=== PATIENT | female | born 1965 | race Caucasian/White ===

== ENCOUNTER 2019-07-14 10:40 | Emergency (ER) | payer MEDICAID ==
[~2019-07-14] VITALS: Ht 160 cm; Wt 83.9 kg
[2019-07-14 10:48] VITALS: BP_SYST 146
--- NOTE | 2019-07-14 10:50 | NUR ---
Patient to ER bed 1 to gown for evaluation. Side rails up.
--- NOTE | 2019-07-14 10:55 | NUR ---
EFREN Ibarra at bedside examining patient.
--- NOTE | 2019-07-14 10:55 | NUR ---
pt came to ER from home c/o SOB and cough for last 2 weeks. Pt RR labored, O2 WNL on RA, cough present, hx COPD, breathing tx administered recently
--- NOTE | 2019-07-14 11:10 | NUR ---
Medicated per MD orders. IVF infusing with no s/s of infiltration at this time. Will cont to monitor
--- NOTE | 2019-07-14 11:10 | NUR ---
# 20 gauge angiocath placed to R AC. Use of asceptic technique. Opsite placed over site. Blood return noted. Blood for lab drawn from site. Flushed with 10 cc of normal saline. No evidence of infiltration noted. Patient tolerated well.
[2019-07-14] MEDS ORDERED: IPRATROPIUM/ALBUTEROL SULFATE 3 ML AMPUL.NEB (DUONEB) INH ONE ×2 (11:15→12:00)
[2019-07-14] MEDS ORDERED: NACL 0.9% 1,000 ML IV ONE (11:15)
[2019-07-14 11:17] LABS: BASOPHILS # (AUTO) 0.1 K/uL (0.0-0.2); BASOPHILS % (AUTO) 1.3 % (0.0-2.0); EOSINOPHILS % (AUTO) 0.4 % (0.0-4.0); HEMATOCRIT 30.5 % (36-48); HEMOGLOBIN 9.7 g/dL (12.0-16.0); LYMPHOCYTES # (AUTO) 0.6 K/uL (1.0-5.5); LYMPHOCYTES % (AUTO) 12.5 % (20.5-51.5); MEAN CORPUSCULAR HEMOGLOBIN 28 pg (27-31); MEAN CORPUSCULAR HGB CONC 32 % (32-36); MEAN CORPUSCULAR VOLUME 87 fL (79.0-98.0); MONOCYTES # (AUTO) 0.4 K/uL (0.0-1.0); MONOCYTES % (AUTO) 8.4 % (1.7-9.3); NEUTROPHILS # (AUTO) 3.7 K/uL (1.8-7.7); NEUTROPHILS % (AUTO) 77.4 % (40.0-70.0); PLATELET COUNT (AUTO) 199 K/uL (130-430); WHITE BLOOD COUNT (AUTO) 4.7 K/uL (4.8-10.8)
[2019-07-14] MEDS ORDERED: IPRATROPIUM/ALBUTEROL SULFATE 3 ML AMPUL.NEB (DUONEB) ONE (11:19)
[2019-07-14 11:21] LABS: RED CELL DISTRIBUTION WIDTH 22.7 % (9.0-15.0)
[2019-07-14] MEDS ORDERED: PROMETHAZINE HCL/CODEINE 6.25-10 mg/5 mL UDC PO ONE (11:45)
--- NOTE | 2019-07-14 11:54 | NUR ---
Note russel in EDM - 07/14/19 at 1159 by SDEDDW pt came to ER from home c/o SOB and cough for last 2 weeks. Pt RR labored, O2 WNL on RA, cough present, hx COPD, breathing tx administered recently
[2019-07-14 11:59] LABS: ALBUMIN 3.5 g/dL (3.4-4.8); CALCIUM 8.6 mg/dL (8.4-11.0); CREATININE 0.9 mg/dL (0.55-1.30); POTASSIUM 3.6 mmol/L (3.5-5.1); TOTAL BILIRUBIN 0.5 mg/dL (0.0-1.0)
[2019-07-14] MEDS ORDERED: methylPREDNISolone SOD SUCC/PF 62.5 MG/ML VIAL IVP ONE (12:00)
[2019-07-14] MEDS ORDERED: hydrALAZINE HCL 20 MG/ML VIAL IVP ONE (12:00)
[2019-07-14 12:05] LABS: BILIRUBIN,URINE NEGATIVE (NEGATIVE); CLARITY/URINE CLEAR (CLEAR); COLOR,URINE YELLOW (YELLOW); GLUCOSE,URINE NEGATIVE (NEGATIVE); KETONES,URINE NEGATIVE (NEGATIVE); LEUKOCYTE ESTERASE ,URINE NEGATIVE (NEGATIVE); NITRITE, URINE NEGATIVE (NEGATIVE); PROTEIN URINE NEGATIVE (NEGATIVE); UROBILINOGEN,URINE 0.2 (0.2-1.0)
[2019-07-14 12:06] LABS: RBC,URINE 0-3 /HPF (0-3)
[2019-07-14 12:07] LABS: BACTERIA,URINE RARE /HPF (None Seen); WBC,URINE 0-3 /HPF (0-3)
[2019-07-14 12:14] LABS: BARBITURATE, URINE NEGATIVE (NEG <=200); BENZODIAZEPINE, URINE NEGATIVE (NEG <=150); CANNABINOID, URINE NEGATIVE (NEG <=50); COCAINE, URINE NEGATIVE (NEG <=150); METHAMPHETAMINES SCREEN,URINE NEGATIVE (NEG <=500); OPIATE, URINE NEGATIVE (NEG <=100); PHENCYCLIDINE SCREEN,URINE NEGATIVE (NEG <=25); UR TRICYCLIC ANTIDEPRESSANTS NEGATIVE (NEG <=300); URINE AMPHETAMINE NEGATIVE (NEG <=500); URINE METHADONE NEGATIVE (NEG <=200); URINE OXYCODONE SCREEN NEGATIVE (NEG <=100); URINE PROPOXYPHENE SCREEN NEGATIVE (NEG <=300)
[2019-07-14] MEDS ORDERED: OSELTAMIVIR PHOSPHATE 75 MG CAPSULE PO ONE (12:15)
--- NOTE | 2019-07-14 12:20 | NUR ---
Pt tested positive for influenza B.
[2019-07-14 12:25] VITALS: BP_SYST 145
--- NOTE | 2019-07-14 12:27 | NUR ---
Patient given written and verbal discharge instructions and verbalizes understanding. ER MD discussed with patient the results and treatment provided. Patient in stable condition. ID arm band removed. IV catheter removed intact and dressing applied, no active bleeding.Rx of [place] given. Patient educated on pain management and to follow up with PMD. Pain Scale 3/10.Opportunity for questions provided and answered. Medication side effect fact sheet provided.
[2019-07-14 13:08] LABS: BLOOD, URINE 2+ (NEGATIVE)
== END 2019-07-14 12:25 | disposition home or self-care (01) ==
LOC: SED 10:40
DX: J44.1 Chronic obstructive pulmonary disease with (acute) exacerbation (principal); J10.1 Influenza due to other identified influenza virus with other respiratory manifestations; F10.10 Alcohol abuse, uncomplicated; R74.0 Nonspecific elevation of levels of transaminase and lactic acid dehydrogenase [LDH]; D64.9 Anemia, unspecified; F17.210 Nicotine dependence, cigarettes, uncomplicated; Z88.8 Allergy status to other drugs, medicaments and biological substances
CPT/HCPCS: 36415; 71045; 80053; 80307; 81000; 83605; 83880; 84484; 85025; 86710; 87040; 87086; 93005; 94640; 96374; 99284; G0482; G9035; J0360; J2930; J7030; J7620; J1956

== ENCOUNTER 2019-07-16 05:36 | Emergency (ER) | payer MEDICAID ==
[~2019-07-16] VITALS: Ht 160 cm; Wt 83.9 kg
[2019-07-16 05:50] VITALS: BP_SYST 134
--- NOTE | 2019-07-16 05:50 | NUR ---
Patient to ER bed 5 for evaluation. Side rails up.
--- NOTE | 2019-07-16 06:00 | NUR ---
Pt C/O flu like symptoms, SOB, dry cough, dizziness, abdominal pain x 2 days. Pt states she was seen on the for the same chief complaint, was positive for influenza B and was given Z pack, Tamiflu and breathing tx 1.5 hours with no relief. Denies any chest pain, N/V/D, GI/ or any other symptoms at this time. Will continue to monitor.
--- NOTE | 2019-07-16 06:04 | NUR ---
ER Dr. Lopez at bedside examining patient.
[2019-07-16] MEDS ORDERED: IPRATROPIUM BROM 0.5 MG/2.5 ML VIAL.NEB (ATROVENT) INH ONE (06:15)
[2019-07-16] MEDS ORDERED: LevALBUTEROL HCL 1.25 MG/0.5 ML *CONC.* VIAL.NEB (XOPENEX CONC.) INH ONE (06:15)
[2019-07-16] MEDS ORDERED: PROMETHAZINE HCL/CODEINE 6.25-10 mg/5 mL UDC PO ONE (06:45)
[2019-07-16] MEDS ORDERED: PROMETHAZINE HCL/CODEINE 6.25-10 mg/5 mL UDC ONE (06:53)
[2019-07-16 06:57] VITALS: BP_SYST 128
--- NOTE | 2019-07-16 06:59 | NUR ---
Patient given written and verbal discharge instructions and verbalizes understanding. ER MD discussed with patient the results and treatment provided. Patient in stable condition. ID arm band removed. Rx of Promethazine Hydrochloride/Dextromethorphan given. Patient educated on pain management and to follow up with PMD. Pain Scale 0. Opportunity for questions provided and answered. Medication side effect fact sheet provided.
== END 2019-07-16 06:59 | disposition home or self-care (01) ==
LOC: SED 05:36
DX: J10.1 Influenza due to other identified influenza virus with other respiratory manifestations (principal)
CPT/HCPCS: 94640; 99283; J7612

== ENCOUNTER 2019-07-21 21:49 | Emergency (ER) | payer MEDICAID ==
[~2019-07-21] VITALS: Ht 160 cm; Wt 83.9 kg
[2019-07-21 22:47] VITALS: BP_SYST 158
--- NOTE | 2019-07-21 22:47 | NUR ---
Pt biba to bed 4 for evaluation
--- NOTE | 2019-07-21 23:17 | NUR ---
PT ELOPED FROM FACILITY BEFORE EVALUATION
== END 2019-07-21 23:17 | disposition left against medical advice (07) ==
LOC: SED 21:49
DX: F10.10 Alcohol abuse, uncomplicated (principal); Z53.21 Procedure and treatment not carried out due to patient leaving prior to being seen by health care provider

== ENCOUNTER 2023-04-03 12:29 | Emergency (ER) | payer MEDICAID ==
[~2023-04-03] VITALS: Ht 160 cm; Wt 66.2 kg
[~2023-04-03 12:29] MED LIST: CIPR500T5 PO; HYDR-4272 PO; LACT1TAB10 PO; METR500T PO
[2023-04-03 12:34] VITALS: BP_SYST 137; PULSE 103; RESP 18; TEMP 98.3; O2SAT 99
[2023-04-03] MEDS ORDERED: KETOROLAC TROMETHAMINE 30 MG VIAL ONE (13:06)
[2023-04-03] MEDS ORDERED: CLIN-142 PO (13:32)
[2023-04-03] MEDS ORDERED: NABU-140 PO (13:32)
[2023-04-03] MEDS: CLINDAMYCIN 900 mg/50mL D5W 50 ML IV ONE (13:38)
[2023-04-03] MEDS: KETOROLAC TROMETHAMINE 30 MG VIAL IVP ONE (13:39)
[2023-04-03 14:55] VITALS: BP_SYST 137; PULSE 103; RESP 18; TEMP 98.3; O2SAT 99
== END 2023-04-03 14:56 | disposition home or self-care (01) ==
LOC: SED 12:29
DX: K04.7 Periapical abscess without sinus (principal); R22.0 Localized swelling, mass and lump, head; J44.9 Chronic obstructive pulmonary disease, unspecified; Z88.0 Allergy status to penicillin; Z88.8 Allergy status to other drugs, medicaments and biological substances; Z79.899 Other long term (current) drug therapy
CPT/HCPCS: 99284; 96365; 96375; J3490; J1885

== ENCOUNTER 2023-09-21 06:43 | Emergency (ER) | payer MEDICAID ==
[~2023-09-21] VITALS: Ht 160 cm; Wt 63.5 kg
[~2023-09-21 06:43] MED LIST changes: +CLIN-142 PO; +NABU-140 PO
[2023-09-21 06:55] VITALS: BP_SYST 147; PULSE 107; RESP 20; TEMP 97.8; O2SAT 97
[2023-09-21] MEDS: RABIES IMMUNE GLOBULIN/PF 300 UNIT/2 ML VIAL I.M. ONE (07:15)
[2023-09-21] MEDS: AMOXICILLIN/POTASSIUM CLAV 875 MG TABLET PO ONE (07:45)
[2023-09-21] MEDS: HYDROcodone/ACETAMIN 10-325 MG TAB PO ONE (07:46)
[2023-09-21] MEDS: KETOROLAC TROMETHAMINE 60 MG/2 ML VIAL IM ONE (07:47)
[2023-09-21] MEDS: RABIES VACCINE (PCEC)/PF 2.5 UNIT VIAL I.M. ONE (07:55)
[2023-09-21] MEDS: ONDANSETRON 4 MG ODT TAB PO ONE (07:57)
[2023-09-21] MEDS ORDERED: LIDOCAINE 1% 10 MG/ML, 20 ML MDV INJ ONE (08:00)
[2023-09-21] MEDS ORDERED: AMOX-423 PO (08:04)
[2023-09-21] MEDS ORDERED: IBUP-1969 PO (08:04)
[2023-09-21] MEDS ORDERED: HYDR-3927 PO (08:04)
[2023-09-21] MEDS: DIPHTH,PERTUSS(ACELL),TET VAC 0.5 ML VIAL (Tdap) I.M. ONE (09:11)
[2023-09-21 09:20] VITALS: BP_SYST 147; PULSE 107; RESP 20; TEMP 97.8; O2SAT 97
== END 2023-09-21 09:12 | disposition home or self-care (01) ==
LOC: SED 06:43
DX: S61.451A Open bite of right hand, initial encounter (principal); E11.9 Type 2 diabetes mellitus without complications; J44.9 Chronic obstructive pulmonary disease, unspecified; Z88.0 Allergy status to penicillin; Z88.8 Allergy status to other drugs, medicaments and biological substances; Z79.899 Other long term (current) drug therapy; W64.XXXA Exposure to other animate mechanical forces, initial encounter; Y93.89 Activity, other specified; Y92.89 Other specified places as the place of occurrence of the external cause; Y99.8 Other external cause status
CPT/HCPCS: 90376; 99284; 36415; 73110; 73130; 90715; 90472; 90471; 29125; 96372; Q0162; J1885; 99291